=== PATIENT | male | born 1980 ===

== ENCOUNTER 2017-12-01 07:33 | Emergency (ER) | payer SELFPAY ==
[2017-12-01 07:47] VITALS: BP 158/116
--- NOTE | 2017-12-01 08:23 | UC ---
Skin Complaint HPI - HPI Summary HPI Summary: 37-year-old male comes in to clinic today a complaint of right cheek swelling. This started 4 days ago. It's been getting worse with more swelling. He did get some pus drainage of a and an infected hair follicle. Does not have any dental pain or sore throat or neck pain. NO Fevers. Pain is moderate it gets better with ibuprofen and position. No known history of MRSA. 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 - History of Current Complaint Chief Complaint: UCSkin Time Seen by Provider: 12/01/17 08:09 Stated Complaint: SKIN COMPLAINT Pain Intensity: 0 - Allergy/Home Medications Allergies/Adverse Reactions: Allergies Allergy/AdvReac Type Severity Reaction Status Date / Time No Known Allergies Allergy Verified 12/01/17 07:40 Home Medications: Home Medications Ibuprofen TAB* [Motrin TAB* 600 MG] 600 mg PO Q6H PRN 12/01/17 [History Confirmed 12/01/17] Review of Systems Constitutional: Negative Skin: Other - See history present illness Eyes: Negative ENT: Negative Respiratory: Negative Cardiovascular: Negative Gastrointestinal: Negative Motor: Negative Neurovascular: Negative Musculoskeletal: Negative Neurological: Negative Psychological: Negative Is Patient Immunocompromised?: No All Other Systems Reviewed And Are Negative: Yes PMH/Surg Hx/FS Hx/Imm Hx Previously Healthy: Yes - Surgical History Surgical History: None - Family History Known Family History: Positive: None Negative: Cardiac Disease, Hypertension, Diabetes - Social History Alcohol Use: None Substance Use Type: None Smoking Status (MU): Light Every Day Tobacco Smoker Amount Used/How Often: 1 P/ week Physical Exam Triage Information Reviewed: Yes Appearance: Well-Appearing, No Pain Distress, Well-Nourished Vital Signs: Initial Vital Signs Temp 98.6 F 12/01/17 07:42 Pulse 106 12/01/17 07:42 Resp 20 12/01/17 07:42 BP 158/116 12/01/17 07:42 Pulse Ox 100 12/01/17 07:42 Vital Signs Reviewed: Yes Eye Exam: Normal Eyes: Positive: Conjunctiva Clear ENT: Positive: Pharynx normal, TMs normal. Negative: Nasal congestion, Nasal drainage, Dental tenderness Dental Exam: Normal Neck: Positive: Supple, Nontender, No Lymphadenopathy Respiratory Exam: Normal Respiratory: Positive: Lungs clear, Normal breath sounds Cardiovascular Exam: Normal Cardiovascular: Positive: RRR Musculoskeletal Exam: Normal Musculoskeletal: Positive: Strength Intact, ROM Intact Neurological Exam: Normal Neurological: Positive: Alert Psychological Exam: Normal Skin: Positive: Other - Right cheek is swollen. There is some erythema surrounding a pus draining hair follicle. The erythema and swelling did not spread to the eye socket OR below the angle of the mandible. Course/Dx - Course Course Of Treatment: . Infection does not spread to the ORBIT at this time. We 'll start clindamycin. A culture of the pus drainage was obtained. Stress reevaluation if he gets worse to include going emergency department if the infection apparently spreads towards the eye or into the throat. Otherwise follow-up with primary care doctor. - Diagnoses Provider Diagnoses: FOLLICULITIS. ABSCESS Discharge - Sign-Out/Discharge Documenting (check all that apply): Patient Departure All imaging exams completed and their final reports reviewed: No Studies - Discharge Plan Condition: Stable Disposition: HOME Prescriptions: Clindamycin Cap(NF) [Clindamycin Cap 300 mg Cap(NF)] 300 mg PO Q6H #40 cap Patient Education Materials: Folliculitis (ED), Abscess (ED) Referrals: [facility] [place] [facility] REFERRAL [Outside] Additional Instructions: FOLLOW UP WITH YOUR DOCTOR. GET RECHECKED FOR ANY WORSENING OF YOUR CONDITION OR QUESTIONS OR CONCERNS. - Billing Disposition and Condition Condition: STABLE Disposition: Home
== END 2017-12-01 08:37 | disposition home or self-care (01) ==
LOC: UCEAST 07:33
DX: L73.9 Follicular disorder, unspecified (principal); L02.01 Cutaneous abscess of face; F17.200 Nicotine dependence, unspecified, uncomplicated
CPT/HCPCS: 87070; 87205; 87640; 87641; 99202; G0463